=== PATIENT | female | born 1950 | race Caucasian/White ===

== ENCOUNTER 2016-12-05 20:02 | Emergency (ER) | payer BC ==
[2016-12-05 20:13] VITALS: BP 142/64
--- NOTE | 2016-12-05 21:54 | RAD ---
Indication: RIGHT foot injury. Attention third and fourth toes. Comparison: No relevant prior exams available on the [facility] for comparison. Technique: AP, lateral, and oblique views RIGHT foot. REPORT AND IMPRESSION: No cortical disruption or suspicious trabecular irregularity to suggest fracture. Negative for dislocation. Mild hallux valgus deformity at the first metatarsal phalangeal joint. Soft tissue swelling about the forefoot.
--- NOTE | 2016-12-05 22:10 | ED ---
Lower Extremity - HPI Summary HPI Summary: 66F presents with right 3th and four toe pain s/p stubbing her toes this morning. She has been able to walk on them. no abrasions. took ibuprofen for pain. no numbness or tingling. no previous injury. Mild edema noted to both 3rd and 4th toe on right foot with bruising. She is on blood thinners. - History of Current Complaint Chief Complaint: EDExtremityLower Stated Complaint: RT FOOT TOES INJURY Time Seen by Provider: 12/05/16 20:19 Pain Intensity: 7 - Allergies/Home Medications Allergies/Adverse Reactions: Allergies Allergy/AdvReac Type Severity Reaction Status Date / Time Penicillins [PCN] Allergy Severe Difficulty Verified 06/19/13 07:25 Breathing PMH/Surg Hx/FS Hx/Imm Hx Endocrine/Hematology History: Reports: Hx Anticoagulant Therapy Denies: Hx Diabetes Cardiovascular History: Reports: Hx Aneurysm, Hx Angina, Hx Coronary Artery Disease, Hx Hypercholesterolemia Denies: Hx Hypertension, Hx Valvular Heart Disease Respiratory History: Reports: Hx Asthma GI History: Reports: Hx Gastroesophageal Reflux Disease Musculoskeletal History: Reports: Hx Arthritis, Hx Back Problems Sensory History: Reports: Hx Cataracts - bilateral Opthamlomology History: Reports: Hx Cataracts - bilateral Neurological History: Reports: Hx Headaches Psychiatric History: Reports: Hx Depression Denies: Hx Suicide Attempt, Hx of Violent Episodes Against Others - Surgical History Surgery Procedure, Year, and Place: 4 stents, cataract, tonsillectomy, appy, hysterectomy Hx Anesthesia Reactions: No Infectious Disease History: No Infectious Disease History: Denies: Hx Clostridium Difficile, Traveled Outside the [place] in Last 30 Days - Family History Known Family History: Positive: Cardiac Disease - Social History Alcohol Use: None Substance Use Type: Reports: None Smoking Status (MU): Light Every Day Tobacco Smoker Type: Cigarettes Length of Time of Smoking/Using Tobacco: 20 yrs Review of Systems Negative: Fever Negative: Chest Pain Negative: Shortness Of Breath Positive: Myalgia - toe pain All Other Systems Reviewed And Are Negative: Yes Physical Exam Triage Information Reviewed: Yes Vital Signs On Initial Exam: Initial Vitals Temp Pulse Resp BP Pulse Ox 98 F 67 16 142/64 97 12/05/16 20:06 12/05/16 20:06 12/05/16 20:06 12/05/16 20:06 12/05/16 20:06 Vital Signs Reviewed: Yes Appearance: Positive: Well-Appearing Skin: Positive: Warm, Dry, Other - ecchymosis to 3rd distal phalanx right toe Head/Face: Positive: Normal Head/Face Inspection Eyes: Positive: Normal, Conjunctiva Clear Respiratory/Lung Sounds: Positive: Clear to Auscultation, Breath Sounds Present Cardiovascular: Positive: Normal, RRR Musculoskeletal: Positive: Strength/ROM Intact - toes, Other - capillary refill < 2 secs, good pulses Diagnostics - Vital Signs Vital Signs Temp Pulse Resp BP Pulse Ox 12/05/16 20:37 98 F 67 16 142/64 97 12/05/16 20:06 98 F 67 16 142/64 97 - Laboratory Lab Statement: Any lab studies that have been ordered have been reviewed, and results considered in the medical decision making process. Lower Extremity Course/Dx - Course Course Of Treatment: 66F presents with right 3th and four toe pain s/p stubbing her toes this morning. She has been able to walk on them. no abrasions. took ibuprofen for pain. no numbness or tingling. no previous injury. Mild edema noted to both 3rd and 4th toe on right foot with bruising. xray normal. will treat as sprain told to use hard sole shoes. warned not to take ibuprofen with blood thinners. patient understands and agrees with plan. - Diagnoses Differential Diagnosis/HQI/PQRI: Positive: Contusion, Fracture (Closed), Sprain Provider Diagnoses: Right foot injury Discharge - Discharge Plan Condition: Good Disposition: HOME Patient Education Materials: Foot Sprain (ED) Referrals: Verona Childress MD [Primary Care Provider] - Additional Instructions: Take Tylenol every 6 hours as needed for pain Apply ice, rest, elevate Wear hard sole shoes Follow up with primary care physician within 5 days if no improvement Return to ED if develop any new or worsening symptoms
== END 2016-12-05 22:32 | disposition home or self-care (01) ==
LOC: ED 20:02
DX: S99.921A Unspecified injury of right foot, initial encounter (principal); W22.8XXA Striking against or struck by other objects, initial encounter; Y93.9 Activity, unspecified; Y92.9 Unspecified place or not applicable; I25.119 Atherosclerotic heart disease of native coronary artery with unspecified angina pectoris; Z95.5 Presence of coronary angioplasty implant and graft; Z79.01 Long term (current) use of anticoagulants; E78.00 Pure hypercholesterolemia, unspecified; J45.909 Unspecified asthma, uncomplicated; K21.9 Gastro-esophageal reflux disease without esophagitis; Z90.710 Acquired absence of both cervix and uterus; Z98.42 Cataract extraction status, left eye; Z98.41 Cataract extraction status, right eye; Z88.0 Allergy status to penicillin; F17.210 Nicotine dependence, cigarettes, uncomplicated
CPT/HCPCS: 99281

== ENCOUNTER 2016-12-19 17:35 | Inpatient (IN) | payer BC ==
[2016-12-19] MEDS ORDERED: Aspirin Low Dose CHEW TAB* 81 MG PO ONE (18:10)
--- NOTE | 2016-12-19 20:05 | RAD ---
INDICATION: Shortness of breath. COMPARISON: Similar chest x-ray June 19, 2013 TECHNIQUE: Single AP portable view of the chest was obtained. FINDINGS: Image quality is compromised due to the relative inferiority of a portable chest x-ray. The heart and mediastinum exhibit normal size and contour. The lungs are grossly clear. There is no evidence of a large pleural effusion. Visualized bones are normal for the patient's age. IMPRESSION: No radiographic evidence for acute cardiopulmonary abnormality on this portable chest x-ray.
[2016-12-19 20:53] LABS: Hematocrit 42 % (35-47); Hemoglobin 13.9 g/dl (12.0-16.0); Mean Corpuscular HGB Conc 33 g/dl (31-36); Mean Corpuscular Hemoglobin 32 pg (27-31); Mean Corpuscular Volume 98 fL (80-97); Mean Platelet Volume 9 um3 (7.4-10.4); Red Blood Count 4.29 10^6/ul (4.0-5.4); Red Cell Distribution Width 13 % (10.5-15); White Blood Count 7.1 10^3/ul (3.5-10.8)
[2016-12-19 21:09] LABS: Albumin 4.1 g/dL (3.2-5.2); BUN/Creatinine Ratio 19.7 (8-20); Calcium 9.1 mg/dL (8.6-10.3); EGFR African American 97.9 (>60); EGFR Non-African American 76.1 (>60); Globulin 2.4 g/dL (2-4); Potassium 3.7 mmol/L (3.5-5.0); Total Bilirubin 0.4 mg/dL (0.2-1.0); Total Protein 6.5 g/dL (6.4-8.9)
[2016-12-19 21:20] LABS: Troponin I 0.2 ng/mL (<0.04)
[2016-12-19] MEDS ORDERED: Heparin VIAL(*) 5000 UNITS/ML VIAL (FIVE THOUSAND) IV SCH (23:45)
[2016-12-20] MEDS: Heparin DRIP 25,000 UNITS(*) 25,000 UNITS/500 ML BAG IV SCH (01:55)
[2016-12-20 02:11] LABS: Hematocrit 42 % (35-47); Hemoglobin 14.2 g/dl (12.0-16.0); Mean Corpuscular HGB Conc 34 g/dl (31-36); Mean Corpuscular Hemoglobin 33 pg (27-31); Mean Corpuscular Volume 98 fL (80-97); Mean Platelet Volume 9 um3 (7.4-10.4); Red Blood Count 4.33 10^6/ul (4.0-5.4); Red Cell Distribution Width 13 % (10.5-15); White Blood Count 6.7 10^3/ul (3.5-10.8)
[2016-12-20 02:39] LABS: Troponin I 0.33 ng/mL (<0.04)
[2016-12-20] MEDS ORDERED: Aspirin TAB* 325 MG PO SCH (09:00)
[2016-12-20] MEDS: Atorvastatin* 20 MG TAB PO SCH (09:16)
[2016-12-20] MEDS: Morphine INJ* 2 MG/ML 1 ML SYRINGE IV PRN ×3 (09:16→17:49)
[2016-12-20] MEDS: Aspirin EC Low Dose* 81 MG TAB.EC PO SCH (09:17)
[2016-12-20] MEDS: Clopidogrel TAB* 75 MG PO SCH (09:17)
[2016-12-20] MEDS: Metoprolol Tartrate TAB* 25 MG PO SCH ×2 (09:17→20:58)
[2016-12-20] MEDS: CMCS Pantoprazole TAB (NF) 40 MG TAB PO SCH (09:17)
[2016-12-20] MEDS ORDERED: Iohexol 350* (CONTRAST) 500 ML MDV IV ONE (09:22)
[2016-12-20] MEDS: Fluticasone NASAL SPRAY 50MCG* 16 gm SPRAY BTL BOTH NARES SCH (09:33)
[2016-12-20] MEDS: Ondansetron INJ* 2 MG/ML VIAL IV PRN ×3 (09:33→17:49)
--- NOTE | 2016-12-20 12:46 | HP ---
CC: Dr. Verona Childress * HISTORY AND PHYSICAL: DATE OF ADMISSION: 12/19/16 CHIEF COMPLAINT: Neck pain. HISTORY OF PRESENT ILLNESS: The patient is a 66-year-old woman who said this morning she started feeling pains in her jaw and neck bilaterally. It felt worse and worse at home. She took ibuprofen and she thought it got a little bit better, but then the pain got even worse. At times, it seemed to be 10/10 in severity. She finally came to the ER for evaluation. She received aspirin. She said the pain has subsided. She said she had no chest pain, but she did have pain between both shoulder blades. She had no shortness of breath. No nausea or vomiting. No palpitations. 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 She apparently had an MS in the past as per the patient and has another stent placed here at [facility], [facility]. PAST SURGICAL HISTORY: Hysterectomy and subsequent bilateral oophorectomy, tonsillectomy. CURRENT MEDICATIONS: 1. Zocor 40 mg daily. 2. Aspirin 325 mg daily. 3. Alendronate 70 mg weekly. 4. Omeprazole 20 mg daily. 5. Flonase 1 spray both nares daily. 6. Metoprolol tartrate 12.5 mg twice a day. 7. Skelaxin 800 mg 3 times a day. 8. Plavix 75 mg daily. ALLERGIES/ADVERSE REACTION: PENICILLIN. FAMILY HISTORY: Reviewed and noncontributory. SOCIAL HISTORY: She smokes 10 packs a day daily for 10 years. No alcohol or recreational drug use. She is a retired accountant cost. Her , Barron Logan , is her healthcare proxy. She has 2 children from a previous marriage. REVIEW OF SYSTEMS: A 14-point review of systems was completed with the patient. All pertinent positives and negatives are in the history of present illness, otherwise negative. PHYSICAL EXAMINATION GENERAL: A pleasant woman, lying in bed, in no acute distress. VITAL SIGNS: Temperature 97.5 degrees, heart rate 76 beats per minute, respiratory rate 16 breaths per minute, pulse ox 95%, blood pressure 118/68. HEENT: Normocephalic, atraumatic. Pupils equal, round, and reactive to light. Moist mucous membranes. NECK: Supple. No JVD, bruits, palpable thyroid, or lymphadenopathy. CHEST: Clear to auscultation and percussion bilaterally. CARDIOVASCULAR: S1 and S2 appreciated. Regular rate and rhythm. ABDOMEN: Positive bowel sounds in all 4 quadrants. Soft, nontender, and nondistended. EXTREMITIES: No cyanosis, clubbing or edema, +2 pulses bilaterally. NEURO: Alert and oriented x3. Moves all extremities. SKIN: No rashes or abnormalities. LABORATORY DATA/DIAGNOSTIC DATA: White count 7.1, hemoglobin 15.9, hematocrit 42, platelets are 186. Sodium is 139, potassium 3.7, chloride 108, CO2 of 26, BUN 15, creatinine 0.76, glucose 101, troponin 0.20. Chest x-ray was interpreted by Radiology as no radiographic evidence for acute cardiopulmonary abnormality on the portable chest x-ray. EKG shows normal sinus rhythm at 76 beats per minute, normal axis, nonspecific ST-T wave changes. ASSESSMENT AND PLAN: 1. [id number] myocardial infarction. I think this is likely diagnosis. Place the patient on heparin drip. Continue her beta-tevin, statin, and aspirin. Chest lipid profile in a.m. Cardiology consult in a.m. Admit to telemetry. 2. Hyperlipidemia. Continue Zocor as noted. 3. Gastroesophageal reflux disease, stable. Continue Prilosec. 4. FEN, n.p.o. Anticipating possible intervention. 5. DVT prophylaxis, heparin drip. 6. The patient is a full code. TIME SPENT: Over 75 minutes were spent on this H and P, more than 40 minutes of which was spent in direct [id number] contact with the patient in evaluation , physical exam, counseling, and coordination of care. [id number]/[facility] #: [id number] MTDD
--- NOTE | 2016-12-20 13:10 | RAD ---
Indication: Neck pain, headaches and nausea. Contrast: Administered 80.3 ml of OMNIPAQUE 350 mg/ml CTA of the neck and head was performed after IV contrast administration. Coronal and sagittal reconstructed images were obtained. The origins of the aortic arch are unremarkable. Innominate artery is unremarkable. The proximal right common carotid artery is limited in evaluation due to artifact from motion. The left common carotid artery demonstrates no intimal wall thickening or plaque. The internal carotid arteries bilaterally demonstrates no evidence of plaque. The anterior middle cerebral arteries are unremarkable. No branch occlusion is identified. No aneurysmal dilatation is noted. The vertebral arteries are patent bilaterally. The cerebral arteries and intracranial vessels demonstrates no branch occlusion. No definite aneurysmal dilatation is noted. There is a patent right posterior communicating artery. Posterior cerebral arteries are unremarkable. The lung apices are unremarkable. IMPRESSION: There is motion artifact limiting evaluation of the proximal right common carotid artery. No evidence of stenosis is noted. No definite plaque is noted. No branch occlusion or carotid artery dissection is noted. The intracranial vessels demonstrates no branch occlusion or aneurysmal dilatation.
[2016-12-20] MEDS: Acetaminophen TAB* 325 MG PO PRN ×2 (13:36→21:08)
--- NOTE | 2016-12-20 13:37 | PN ---
Subjective Date of Service: 12/20/16 Interval History: This is a 66 yo female with h/o CAD and HLD who presented with c/o neck pain that felt similar to prior CT. Initial trop elevated and patient was admitted for NSTEMI. Trop has peaked overnight without noted dynamic EKG changes. She reports that her neck pain has subsided but she now has a headache and mild nausea. She vomited once this am. Objective Active Medications: Acetaminophen (Tylenol Tab*) 650 mg PO Q6H PRN PRN Reason: pain/fever Aspirin (Aspirin Ec Low Dose*) 81 mg PO DAILY [facility] Last Admin: 12/20/16 09:17 Dose: 81 mg Atorvastatin Calcium (Lipitor*) 20 mg PO DAILY [facility] Last Admin: 12/20/16 09:16 Dose: 20 mg Clopidogrel Bisulfate (Plavix Tab*) 75 mg PO DAILY [facility] Last Admin: 12/20/16 09:17 Dose: 75 mg Fluticasone Propionate (Flonase Nasal [place] 50mcg*) 1 spray BOTH NARES DAILY [facility] Last Admin: 12/20/16 09:33 Dose: 1 spray Heparin Sodium (Porcine) (Heparin Vial(*)) 0 units IV .PER PROTOCOL [facility] PRN Reason: Protocol Heparin Sodium/Dextrose (Heparin Drip 25,000 Units(*)) 25,000 units in 500 mls @ 0 mls/hr IV .NO INITIAL BOLUS [facility]; As Directed PRN Reason: Protocol Last Admin: 12/20/16 01:55 Dose: 20 mls/hr Metoprolol Tartrate (Lopressor Tab*) 12.5 mg PO BID [facility] Last Admin: 12/20/16 09:17 Dose: 12.5 mg Morphine Sulfate (Morphine Inj (Syringe)*) 2 mg IV Q4H PRN PRN Reason: PAIN - MILD Last Admin: 12/20/16 09:16 Dose: 2 mg Ondansetron HCl (Zofran Inj*) 4 mg IV Q4H PRN PRN Reason: NAUSEA Last Admin: 12/20/16 09:33 Dose: 4 mg Pantoprazole Sodium (Protonix Tab (Nf)) 40 mg PO DAILY [facility] Last Admin: 12/20/16 09:17 Dose: 40 mg Vital Signs: Temp Pulse Resp BP Pulse Ox 97.7 F 67 16 109/60 94 12/20/16 11:58 12/20/16 11:58 12/20/16 11:58 12/20/16 11:58 12/20/16 11:58 Oxygen Devices in Use Now: None Appearance: Well appearing middle aged female in NAD Respiratory: Symmetrical Chest Expansion and Respiratory Effort, Clear to Auscultation Cardiovascular: NL Sounds; No Murmurs; No JVD, RRR Abdominal: NL Sounds; No Tenderness; No Distention Extremities: No Edema Neurological: Alert and Oriented x 3 Result Diagrams: 12/20/16 01:55 12/20/16 02:30 Diagnostic Imaging: CXR - NAD CTA head/neck - WNL EKG - sinus without acute ischemic changes Assess/Plan/Problems-Billing Assessment: This is a 66 yo female with h/o CAD and prior coronary dissection as well as HLD who presented with CP who has been admitted for NSTEMI - Patient Problems (1) NSTEMI (non-ST elevated myocardial infarction) Comment: Trop has peaked, c/o neck pain have resolved and no EKG changes noted Patient has been evaluated by salesperson china and glassware, Dr Lowe, who plans to perform diagnostic cath Thursday but sooner if there is evidence of new ischemia Cont heparin drip, ASA, BB, statin and home Plavix (2) HLD (hyperlipidemia) Comment: Cont statin (3) Full code status (4) DVT prophylaxis Comment: Heparin drip Status and Disposition: Inpatient. Pending cath for Thursday, [place] planning with depend on results
[2016-12-20] MEDS ORDERED: Calcium Carbonate CHEW TAB* 500 MG (TUMS) PO PRN (14:52)
[2016-12-20] MEDS: Al Hydrox/Mg Hydrox/Simet LIQ* 30 ML UDC PO PRN (18:27)
[2016-12-21 03:36] LABS: EGFR African American 84.9 (>60)
[2016-12-21 03:39] LABS: Hematocrit 41 % (35-47); Hemoglobin 13.9 g/dl (12.0-16.0); Mean Corpuscular HGB Conc 34 g/dl (31-36); Mean Corpuscular Hemoglobin 32 pg (27-31); Mean Corpuscular Volume 95 fL (80-97); Mean Platelet Volume 9 um3 (7.4-10.4); Red Blood Count 4.34 10^6/ul (4.0-5.4); Red Cell Distribution Width 13 % (10.5-15); White Blood Count 6.6 10^3/ul (3.5-10.8)
[2016-12-21] MEDS: Acetaminophen TAB* 325 MG PO PRN ×2 (06:08→12:50)
[2016-12-21] MEDS: Heparin DRIP 25,000 UNITS(*) 25,000 UNITS/500 ML BAG IV SCH (06:30)
[2016-12-21] MEDS: Atorvastatin* 20 MG TAB PO SCH (08:18)
[2016-12-21] MEDS: Clopidogrel TAB* 75 MG PO SCH (08:18)
[2016-12-21] MEDS: CMCS Pantoprazole TAB (NF) 40 MG TAB PO SCH (08:19)
[2016-12-21] MEDS: Aspirin EC Low Dose* 81 MG TAB.EC PO SCH (08:19)
[2016-12-21] MEDS: Fluticasone NASAL SPRAY 50MCG* 16 gm SPRAY BTL BOTH NARES SCH (08:20)
[2016-12-21] MEDS ORDERED: diPHENhydraMINE PO* 25 MG PO ONE (10:02)
[2016-12-21] MEDS ORDERED: Diazepam TAB(*) 5 MG PO ONE (10:02)
--- NOTE | 2016-12-21 11:39 | CONS ---
CC: Dr. Verona Childress * CARDIOLOGY CONSULTATION: DATE OF CONSULT: 12/20/16 REASON FOR CONSULT: Coronary artery disease, acute coronary syndrome. HISTORY OF PRESENT ILLNESS: The patient is a 66-year-old female with a history of coronary artery disease, who was brought to the emergency room on 12/19/16 in the evening with chest pain. The patient states that she had been doing well up until about a week ago when she was having mild intermittent chest pain. She did not think much about it and she said this occurred with exertion and stopped quickly with rest. However, on Thursday morning, she woke up and had severe jaw and chest pain. She said it started in her chest and radiated to her jaw and to her back. She was diaphoretic when she had these symptoms. They lasted for approximately an hour. She did take an aspirin and the symptoms resolved. The patient states she felt just tired and weak the rest of the day, but then in the evening around 5 o'clock, the symptoms returned with the same intensity, it again radiated from her chest to her jaw. She also had some diaphoresis. At that time, she decided to drive herself to the emergency room. On arrival to the emergency room, the patient was given sublingual nitroglycerin, morphine, and her initial troponin level was 0.2. The patient was started on heparin and admitted to the hospital. Her initial EKG demonstrated normal sinus rhythm with T-wave abnormalities, no obvious ST segment depression or elevation. PAST MEDICAL HISTORY: Significant for coronary artery disease. The patient had a cardiac catheterization in July of 2010. 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 She had 4 bare-metal stents placed at that time. The patient had a repeat cardiac catheterization in December of 2012. At that time, she had restenosis of her distal right coronary artery. She had a 2.25 mm x 12 mm Promus stent placed. She also had angioplasty to other restenotic areas. Also has a history of hypertension. PAST SURGICAL HISTORY: Cardiac catheterization as described above, hysterectomy , tonsillectomy. OUTPATIENT MEDICATIONS: 1. Zocor 40 mg a day. 2. Aspirin 325 a day. 3. Alendronate 70 mg q. week. 4. Omeprazole 20 mg a day. 5. Flonase 2 sprays. 6. Metoprolol tartrate 12.5 mg b.i.d. 7. Skelaxin 800 mg 3 times a day. 8. Plavix 75 mg a day. ALLERGIES: PENICILLIN. FAMILY HISTORY: No family history of early coronary artery disease. SOCIAL HISTORY: She was a previous smoker. She denies alcohol. She is a retired community outreach director. She lives with her and has 2 children. PHYSICAL EXAM: Height is 5 feet 4 inches, weight is 141 pounds, temperature 98.4, heart rate is 62, blood pressure 100/40, respiratory rate is 18, oxygen saturation 93%. Sclerae anicteric. Oropharynx pink without erythema. Carotids are 2+ without bruits. JVD is normal. Thyroid is normal. Cardiac exam: S1, S2, without any murmurs, rubs or gallops. Lungs: Clear to auscultation bilaterally with no dullness to percussion. Abdomen: Soft, nontender, nondistended with normoactive bowel sounds. Extremities: Show no edema. She has 2+ pulses throughout. Patient is awake, alert, and oriented. She moves all 4 extremities equally. DIAGNOSTIC STUDIES/LAB DATA: Chemistries are within normal limits. BUN 15, creatinine 0.76. AST and ALT are normal. Peak troponin level 0.63. Total cholesterol 278, LDL cholesterol 183, HDL cholesterol 37. CBC within normal limits. Other diagnostic tests: The patient had a CTA of her chest and neck to rule out carotid dissection. There is no evidence of abnormalities. IMPRESSION: This is a 66-year-old female who was admitted to the hospital with acute coronary syndrome. The patient has already been treated with Plavix, aspirin, and beta-blockers, and statin therapy. PLAN/RECOMMENDATIONS: The patient will undergo repeat cardiac catheterization given her current presentation. The risks and benefits were described in great detail and the patient is willing to proceed. This case was discussed with KACIE Mack, for the hospitalist service. [id number]/[facility] #: [id number] [facility] HOSPITALAngela
--- NOTE | 2016-12-21 13:33 | PN ---
Subjective Date of Service: 12/21/16 Interval History: Patient reports no recurrence of CP. No SOB, no abd pain, n/v. She still has an occasional VILLAFUERTE which is managed with APAP. Objective Active Medications: Acetaminophen (Tylenol Tab*) 650 mg PO Q6H PRN PRN Reason: pain/fever Last Admin: 12/21/16 12:50 Dose: 650 mg Al Hydrox/Mg Hydrox/Simethicone (Maalox Plus*) 30 ml PO Q4H PRN PRN Reason: reflux Last Admin: 12/20/16 18:27 Dose: 30 ml Aspirin (Aspirin Ec Low Dose*) 81 mg PO DAILY [facility] Last Admin: 12/21/16 08:19 Dose: 81 mg Atorvastatin Calcium (Lipitor*) 80 mg PO DAILY [facility] Calcium Carbonate (Tums*) 500 mg PO Q4H PRN PRN Reason: GI upset Last Admin: 12/20/16 15:21 Dose: 500 mg Clopidogrel Bisulfate (Plavix Tab*) 75 mg PO DAILY [facility] Last Admin: 12/21/16 08:18 Dose: 75 mg Fluticasone Propionate (Flonase Nasal [place] 50mcg*) 1 spray BOTH NARES DAILY [facility] Last Admin: 12/21/16 08:20 Dose: 1 spray Heparin Sodium (Porcine) (Heparin Vial(*)) 0 units IV .PER PROTOCOL [facility] PRN Reason: Protocol Heparin Sodium/Dextrose (Heparin Drip 25,000 Units(*)) 25,000 units in 500 mls @ 0 mls/hr IV .NO INITIAL BOLUS [facility]; As Directed PRN Reason: Protocol Last Admin: 12/21/16 06:30 Dose: 17 mls/hr Sodium Chloride (Ns 0.9% 1000 Ml*) 1,000 mls @ 75 mls/hr IV .per rate [facility] Morphine Sulfate (Morphine Inj (Syringe)*) 2 mg IV Q4H PRN PRN Reason: PAIN - MILD Last Admin: 12/20/16 17:49 Dose: 2 mg Ondansetron HCl (Zofran Inj*) 4 mg IV Q4H PRN PRN Reason: NAUSEA Last Admin: 12/20/16 17:49 Dose: 4 mg Pantoprazole Sodium (Protonix Tab (Nf)) 40 mg PO DAILY [facility] Last Admin: 12/21/16 08:19 Dose: 40 mg Vital Signs: Temp Pulse Resp BP Pulse Ox 98.0 F 69 18 101/56 95 12/21/16 10:52 12/21/16 10:52 12/21/16 10:52 12/21/16 10:52 12/21/16 10:52 Oxygen Devices in Use Now: None Appearance: Well appearing middle aged female in NAD Respiratory: Symmetrical Chest Expansion and Respiratory Effort, Clear to Auscultation Cardiovascular: NL Sounds; No Murmurs; No JVD, RRR Abdominal: NL Sounds; No Tenderness; No Distention Extremities: No Edema Neurological: Alert and Oriented x 3 Result Diagrams: 12/21/16 03:12 12/21/16 03:12 Diagnostic Imaging: CXR - NAD CTA head/neck - WNL EKG - sinus without acute ischemic changes Assess/Plan/Problems-Billing Assessment: This is a 66 yo female with h/o CAD and prior coronary dissection as well as HLD who presented with CP who has been admitted for NSTEMI - Patient Problems (1) NSTEMI (non-ST elevated myocardial infarction) Comment: Trop has peaked, c/o neck pain have resolved and no EKG changes noted Patient has been evaluated by black powder glazing operator, Dr Lowe, who plans to perform diagnostic cath tomorrow but sooner if there is evidence of new ischemia Cont heparin drip, ASA, statin and home Plavix BB dc'd due to hypotension and borderline bradycardia (2) HLD (hyperlipidemia) Comment: Cont statin (3) Full code status (4) DVT prophylaxis Comment: Heparin drip Status and Disposition: Inpatient. Pending cath tomorrow, dc planning with depend on results
[2016-12-21] MEDS: Al Hydrox/Mg Hydrox/Simet LIQ* 30 ML UDC PO PRN (16:55)
[2016-12-21] MEDS ORDERED: NS 0.9% 1000 ML* 1,000 ML IV SCH (23:15)
[2016-12-22 05:36] LABS: Hematocrit 42 % (35-47); Mean Corpuscular HGB Conc 33 g/dl (31-36); Mean Corpuscular Hemoglobin 32 pg (27-31); Mean Corpuscular Volume 95 fL (80-97); Mean Platelet Volume 9 um3 (7.4-10.4); Red Blood Count 4.43 10^6/ul (4.0-5.4); Red Cell Distribution Width 13 % (10.5-15); White Blood Count 4.3 10^3/ul (3.5-10.8)
[2016-12-22] MEDS ORDERED: Diazepam TAB(*) 5 MG ONE (08:23)
[2016-12-22] MEDS ORDERED: Aspirin Low Dose CHEW TAB* 81 MG ONE (08:24)
[2016-12-22] MEDS ORDERED: diPHENhydraMINE PO* 25 MG ONE (08:24)
[2016-12-22] MEDS ORDERED: Clopidogrel TAB* 75 MG ONE (08:24)
[2016-12-22] MEDS: Clopidogrel TAB* 75 MG PO SCH (08:27)
[2016-12-22] MEDS: Aspirin EC Low Dose* 81 MG TAB.EC PO SCH (08:27)
[2016-12-22] MEDS: Heparin DRIP 25,000 UNITS(*) 25,000 UNITS/500 ML BAG IV SCH (08:29)
[2016-12-22] MEDS ORDERED: fentaNYL* 50 MCG/ML 2 ML VIAL (100 MCG VIAL) ONE (08:40)
[2016-12-22] MEDS ORDERED: Lidocaine 1% INJ* 10 MG/ML 30 ML SDV ONE (08:40)
[2016-12-22] MEDS ORDERED: Heparin 2 UNITS/ML IVPREMIX* 3,000 ML IV ONE (08:40)
[2016-12-22] MEDS ORDERED: Midazolam* 1 MG/ML 5 ML VIAL (5 MG) ONE (08:40)
[2016-12-22] MEDS ORDERED: Iohexol 350 (CONTRAST) 200 ML MDV IV ONE ×2 (08:41→09:43)
[2016-12-22] MEDS ORDERED: Ticagrelor* 90 MG TAB PO ONE (09:29)
[2016-12-22] MEDS ORDERED: Bivalirudin(*) 250 MG VIAL ONE (09:37)
[2016-12-22] MEDS ORDERED: nitroGLYCERIN DRIP* 250 ML ONE (09:37)
[2016-12-22] MEDS ORDERED: Nitroglycerin TAB 0.4 MG* 0.4 MG TAB SL PRN (10:33)
[2016-12-22] MEDS ORDERED: Docusate CAP* 100 MG PO PRN (10:33)
[2016-12-22] MEDS ORDERED: Zolpidem TAB* 5 MG PO PRN (10:33)
[2016-12-22] MEDS ORDERED: NS 0.9% 1000 ML* 1,000 ML IV SCH (10:45)
[2016-12-22] MEDS: Atorvastatin* 80 MG TAB PO SCH (11:43)
[2016-12-22] MEDS: CMCS Pantoprazole TAB (NF) 40 MG TAB PO SCH (11:44)
[2016-12-22] MEDS: Fluticasone NASAL SPRAY 50MCG* 16 gm SPRAY BTL BOTH NARES SCH (11:44)
--- NOTE | 2016-12-22 14:04 | PN ---
Subjective Date of Service: 12/22/16 Interval History: Patient underwent cardiac catheterization this am which resulted in stenting of the RCA which demonstrated significant stenosis in the proximal and mid portions. The distal portion was also severely stenosed but interventionalist was unable to pass a wire through the region, collateral circulation was present. Patient reports mild nausea since the procedure. No chest or neck pain. No SOB. Objective Active Medications: Acetaminophen (Tylenol Tab*) 650 mg PO Q4H PRN PRN Reason: pain/fever Al Hydrox/Mg Hydrox/Simethicone (Maalox Plus*) 30 ml PO Q4H PRN PRN Reason: reflux Last Admin: 12/21/16 16:55 Dose: 30 ml Aspirin (Aspirin Ec Low Dose*) 81 mg PO DAILY [facility] Last Admin: 12/22/16 08:27 Dose: 81 mg Atorvastatin Calcium (Lipitor*) 80 mg PO DAILY [facility] Last Admin: 12/22/16 11:43 Dose: 80 mg Calcium Carbonate (Tums*) 500 mg PO Q4H PRN PRN Reason: GI upset Last Admin: 12/20/16 15:21 Dose: 500 mg Docusate Sodium (Colace Cap*) 100 mg PO DAILY PRN PRN Reason: CONSTIPATION Fluticasone Propionate (Flonase Nasal [place] 50mcg*) 1 spray BOTH NARES DAILY [facility] Last Admin: 12/22/16 11:44 Dose: 1 spray Heparin Sodium (Porcine) (Heparin Vial(*)) 0 units IV .PER PROTOCOL [facility] PRN Reason: Protocol Sodium Chloride (Ns 0.9% 1000 Ml*) 1,000 mls @ 75 mls/hr IV .per rate [facility] Last Admin: 12/21/16 23:14 Dose: 75 mls/hr Sodium Chloride (Ns 0.9% 1000 Ml*) 1,000 mls @ 100 mls/hr IV .per rate [facility] Last Admin: 12/22/16 11:44 Dose: 100 mls/hr Morphine Sulfate (Morphine Inj (Syringe)*) 2 mg IV Q4H PRN PRN Reason: PAIN - MILD Last Admin: 12/20/16 17:49 Dose: 2 mg Nitroglycerin (Nitroglycerin Tab 0.4 Mg*) 0.4 mg SL Q5M PRN PRN Reason: ANGINA Ondansetron HCl (Zofran Inj*) 4 mg IV Q4H PRN PRN Reason: NAUSEA Last Admin: 12/20/16 17:49 Dose: 4 mg Pantoprazole Sodium (Protonix Tab (Nf)) 40 mg PO DAILY [facility] Last Admin: 12/22/16 11:44 Dose: 40 mg Ticagrelor (Brilinta*) 90 mg PO BID [facility] Zolpidem Tartrate (Ambien Tab*) 5 mg PO BEDTIME PRN PRN Reason: INSOMNIA Vital Signs: Temp Pulse Resp BP Pulse Ox 97.6 F 73 20 136/69 99 12/22/16 11:35 12/22/16 13:00 12/22/16 13:00 12/22/16 13:00 12/22/16 13:00 Appearance: Well appearing female in NAD Respiratory: Symmetrical Chest Expansion and Respiratory Effort, Clear to Auscultation Cardiovascular: NL Sounds; No Murmurs; No JVD, RRR Abdominal: NL Sounds; No Tenderness; No Distention Extremities: No Edema Skin: No Rash or Ulcers Neurological: Alert and Oriented x 3 Result Diagrams: 12/22/16 05:11 12/21/16 03:12 Diagnostic Imaging: CXR - NAD CTA head/neck - WNL EKG - sinus without acute ischemic changes Assess/Plan/Problems-Billing Assessment: This is a 66 yo female with h/o CAD and prior coronary dissection as well as HLD who presented with CP who has been admitted for NSTEMI - Patient Problems (1) NSTEMI (non-ST elevated myocardial infarction) Comment: Trop has peaked, c/o neck pain have resolved and no EKG changes noted Now s/p cath with stent placed to RCA with persistent distal stenosis Patient is now on Brilinta to replace Plavix with ASA and statin Her use of BB was limited by BP earlier in her hospital stay, but will try to start 12.5 mg of metoprolol succinate and she may require additional antianginal agents due to presence of persistent stenosis (2) HLD (hyperlipidemia) Comment: Cont statin LDL 183 Prior statin use has been limited by hepatic dysfunction, this will need to be monitored (3) Full code status (4) DVT prophylaxis Comment: Heparin drip Status and Disposition: Inpatient. Anticipate dc in 1-2 days
[2016-12-22] MEDS ORDERED: Metoprolol Succinate XL TAB* 25 MG PO SCH (15:00)
[2016-12-22] MEDS: Metoprolol Succinate XL TAB* 25 MG PO SCH (15:56)
[2016-12-22] MEDS: Acetaminophen TAB* 325 MG PO PRN (20:26)
[2016-12-22] MEDS: Ticagrelor* 90 MG TAB PO SCH (21:37)
--- NOTE | 2016-12-23 03:28 | CATH ---
CC: Dr. Verona Childress; Dr. Randy Cavazos * CARDIAC CATHETERIZATION REPORT: DATE OF PROCEDURE: 12/22/16 - ROOM #ICU-02 PROCEDURE: Cardiac catheterization including left ventriculogram, left heart catheterization, and coronary angiography. INDICATION: Acute coronary syndrome, history of coronary artery disease, and cardiac stent placement. The patient is a 66-year-old female with a history of stent placement. Recently back in 2010, she had 4 stents placed to her right coronary artery after a cardiac catheterization. The patient had a repeat cardiac catheterization in 2012. At that time, she had an additional stent placed for restenosis of her artery. The patient has been followed by Dr. Childress. The patient was admitted to the hospital with chest pain and positive troponins. DESCRIPTION OF PROCEDURE: The patient was brought to the cardiac catheterization lab in a fasting state. Informed consent had been obtained prior to the procedure. All labs were reviewed. The patient was placed supine on the catheterization table. Both femoral areas were cleaned and draped in the usual fashion. 1% lidocaine was used for local anesthesia. The right femoral artery was entered by a modified Seldinger technique and a 6-Chilean sheath introducer was placed. The patient underwent left ventriculogram and coronary angiography using a 6-Chilean pigtail catheter, a 6-Chilean JL4 catheter , and a 6-Chilean JR4 catheter. At the end of the procedure, the patient went on to angioplasty and stenting of her right coronary artery by Dr. Cavazos, please see his report. A total of 2.5 minutes of fluoro time was used. A total of 65 cc of Omnipaque dye was used. FINDINGS: HEMODYNAMICS: Central aortic blood pressure 128/66 with a mean of 91, left ventricular pressure 129/2 with an end-diastolic pressure of 8. LEFT VENTRICULOGRAM: Left ventricle was normal in size. Overall systolic function of the left ventricle was normal with an estimated ejection fraction 60 %. There was a mild hypokinesis of the inferior base. There is no mitral regurgitation. Aortic valve and ascending aorta appeared normal. CORONARY ARTERIES: Left main artery: The left main was normal in size bifurcating into the LAD and circumflex. There was no evidence of stenosis. Left anterior descending artery: The LAD was normal in size. It gave off 1 diagonal vessel. There was no evidence of stenosis. Left circumflex artery: The circumflex artery was normal in size. It gave off 1 obtuse marginal branch. There was no evidence of stenosis. Right coronary artery: The RCA was a large dominant vessel. It gave off the PDA. There were continuous stents placed from the proximal portion of the right coronary artery all the way down past the PDA and stents to the PDA itself. The proximal portion of these stents showed mild in-stent restenosis. The mid vessel showed severe in-stent restenosis with a 95% stenosis. Subsequent to that, there was a 70% stenosis within the stent itself. The PDA itself had diffuse in-stent restenosis of 50%. The posterolateral branch was diffusely diseased. There was evidence of left to right collaterals of the distal posterolateral branch. IMPRESSION: 1. Normal left ventricular size and systolic function. 2. Critical in-stent restenosis of the right coronary artery. 3. Severe diminished flow to the posterolateral branch of the right coronary artery. RECOMMENDATION: The patient will undergo angioplasty and stenting of the restenosis in the mid right coronary artery. The restenosis of the posterolateral branch is too diffuse to attempt any intervention. [id number]/[facility] #: [id number] KONG
[2016-12-23] MEDS: Acetaminophen TAB* 325 MG PO PRN (05:06)
[2016-12-23 05:42] LABS: Hematocrit 43 % (35-47); Hemoglobin 14.6 g/dl (12.0-16.0); Mean Corpuscular HGB Conc 34 g/dl (31-36); Mean Corpuscular Hemoglobin 32 pg (27-31); Mean Corpuscular Volume 95 fL (80-97); Mean Platelet Volume 9 um3 (7.4-10.4); Red Blood Count 4.52 10^6/ul (4.0-5.4); Red Cell Distribution Width 13 % (10.5-15); White Blood Count 6.6 10^3/ul (3.5-10.8)
[2016-12-23 07:52] LABS: BUN/Creatinine Ratio 12.2 (8-20); Calcium 8.7 mg/dL (8.6-10.3); EGFR Non-African American 78.5 (>60); Potassium 3.7 mmol/L (3.5-5.0)
--- NOTE | 2016-12-23 08:02 | CATH ---
CC: Verona Childress MD; Neil Lowe MD; and Dr. Nicholas Kapoor, Web Merchandiser at [facility]. * CARDIAC CATHETERIZATION INTERVENTIONAL REPORT: DATE OF PROCEDURE: 12/22/16 INDICATIONS FOR PROCEDURE: Asked by Dr. Neil Lowe to perform intervention to the mid and [id number] critical right coronary artery stenosis in light of non- ST-elevation myocardial infarction. PROCEDURE: Balloon angioplasty and placement of a 3.0 x 32 mm long synergy drug - eluting stent in the mid to distal right coronary artery post dilated to 3.2 mm with high pressure balloon inflation. DESCRIPTION OF PROCEDURE: The patient had already been prepped and draped, and had an existing 6 Malaysian arterial sheath from the diagnostic cardiac catheterization performed by Dr. Neil Lowe and reported separately. Guiding views were obtained utilizing a 6 Malaysian ART 3.5 curve right coronary catheter. The patient received 180 mg of Brilinta and an Angiomax bolus, and an Angiomax drip was started. An .014 BMW Guidewire was advanced down the right coronary artery and balloon angioplasty was performed utilizing an NC emerge balloon, 2.5 x 15 mm. Attempts were made to try to traverse to the distal -most area, which appeared to be a subtotally occluded posterior left ventricular branch that was getting collateral blood flow from the left coronary artery. Both the mid and mid to distal lesions were dilated. Following this, the long 3.0 x 32 mm long Synergy drug-eluting stent was deployed with post deployment inflations to high pressure, utilizing a 3.0 x 15 mm NC emerge balloon. Following this, the artery was assessed in multiple views as well as with the wire removed. Medications given included intracoronary nitroglycerin. At the end of the case, an injection was made into the right femoral sheath to assess eligibility to utilize closure device. It was found to be acceptable for this; and, as such, a 6/7 Malaysian Mynx closure device was deployed with good hemostasis. RESULTS: Intervention into 95% mid right coronary lesion as well as 90% mid to distal right coronary artery lesion with moderate disease in between: Successful reduction of critical lesions with balloon angioplasty and stent placement in high pressure post deployment balloon dilatations with a 5% to 10% residual narrowing noted ROSEMARY-3 flow and no dissection seen. Of note, there was improvement in blood flow to the subtotally occluded posterior left ventricular branch, which showed competitive flow from the collaterals from the left coronary artery. Recommendations for intermission coordinator dual-antiplatelet therapy, anti-anginal medication institution, and high-dose statin therapy strongly recommended. If the patient has intolerance of statins as potentially reported in the past, consideration toward new PCSK9 inhibitor agents for cholesterol management might be an option. Of note, there was diffuse in-stent restenosis, moderate in nature, throughout the whole right coronary artery in general. [id number]/[facility] #: [id number] KONG
[2016-12-23 08:31] VITALS: BP 117/58
[2016-12-23] MEDS: Ticagrelor* 90 MG TAB PO SCH (08:45)
[2016-12-23] MEDS: Metoprolol Succinate XL TAB* 25 MG PO SCH (08:45)
[2016-12-23] MEDS: Atorvastatin* 80 MG TAB PO SCH (08:45)
[2016-12-23] MEDS: Aspirin EC Low Dose* 81 MG TAB.EC PO SCH (08:46)
[2016-12-23] MEDS: Fluticasone NASAL SPRAY 50MCG* 16 gm SPRAY BTL BOTH NARES SCH (08:46)
[2016-12-23] MEDS: CMCS Pantoprazole TAB (NF) 40 MG TAB PO SCH (09:05)
--- NOTE | 2016-12-23 21:37 | DS ---
CC: Dr. Verona Childress; Dr. Lowe * DISCHARGE SUMMARY: DATE OF ADMISSION: 12/19/16 DISCHARGE DATE: 12/23/16 PRIMARY CARE PROVIDER: Dr. Verona Childress. CONSULTING RUBBER VULCANIZING MACHINE OPERATOR: Dr. Lowe. CONSTRUCTION MGR: Dr. Cavazos. DISCHARGING PROVIDER: KACIE Sinha SUPERVISING PHYSICIAN: Dr. Natividad Cuevas. * (DICTATED BY KACIE SINHA) PRIMARY DISCHARGE DIAGNOSIS: Non-ST elevation myocardial infarction, status post drug-eluting stent to the right coronary artery with some persistent distal stenosis. SECONDARY DISCHARGE DIAGNOSES: 1. Hyperlipidemia - history of intolerance to statins, reported as change in liver enzymes. 2. History of right coronary dissection and known prior coronary artery disease. DISCHARGE MEDICATIONS: 1. Alendronate 70 mg p.o. weekly. 2. Aspirin 81 mg p.o. daily. 3. Lipitor 80 mg p.o. daily. 4. Fluticasone nasal spray, 1 spray in both nostrils twice daily. 5. Isosorbide mononitrate 30 mg p.o. daily. 6. Metoprolol succinate 12.5 mg p.o. daily. 7. Omeprazole 20 mg p.o. daily. 8. Simvastatin 40 mg p.o. daily. 9. Brilinta 90 mg p.o. twice daily. Medication changes: 1. Start Lipitor. 2. Start Imdur. 3. Start metoprolol. 4. Stop Plavix. 5. Start Brilinta. HOSPITAL IMAGIN. Chest x-ray shows no acute process. 2. EKG shows a sinus rhythm with nonspecific ST-segment changes, which remains unchanged on serial. 3. CTA of the head and neck shows no evidence of dissection. No evidence of significant stenosis or branch occlusion is noted. 4. Cardiac catheterization: The patient had 95% stenosis of the mid RCA as well as a 90% [id number] RCA lesion with an additional distal lesion that was unable to be wired open, but collaterals noted surrounding with improved blood flow to the area as stenting was performed to the proximal end of the vessel. Left main artery showed no evidence of stenosis. LAD showed no evidence of stenosis. Circumflex showed no evidence of stenosis. Ventriculogram showed an EF of 60%. HOSPITAL COURSE: This is a 66-year-old female with a known prior history of coronary artery disease and hyperlipidemia, who presented to the emergency department with complaints of neck pain similar to her prior [place]. Her initial troponin was elevated to 0.20 and her initial EKG showed no ischemic changes. Serial troponin measurements showed a steady rise to a peak of about 0.36. Neck pain resolved and the patient was subsequently treated with heparin drip and evaluated by Cardiology. She went for a cardiac catheterization, which demonstrated critical stenosis in the mid and [id number] RCA, which was stented. There was an additional area of stenosis in the distal portion of RCA, which was unable to be stented with collateral circulation noted. The patient remained asymptomatic following intervention. She was started on long- acting vasodilatation medication due to the persistent distal RCA stenosis for additional symptom relief. She does have a history of reported statin intolerance but seemed to do well with Lipitor during her hospital stay without complaints of myalgias or changes in liver function. Recommend following liver enzymes as an outpatient and consider dose reduction or discontinuation of statin if intolerance again is proven. DISPOSITION AND FOLLOWUP PLAN: The patient is being discharged to home where she lives with her . Medication changes as noted above. She will follow up with Dr. Lowe for groin site check in 1 to 2 weeks. KACIE SINHA [id number]/[facility] #: [id number] MTDAngela
== END 2016-12-23 11:05 | disposition home or self-care (01) | DRG 174 ==
LOC: ED 17:35 → MEDTELE 23:21 → ICU 12-22 09:59
PROVIDERS: ADMIT Internal Medicine; ATTEND Hospitalist
PROC: 027034Z Dilation of Coronary Artery, One Artery with Drug-eluting Intraluminal Device, Percutaneous Approach (ICD-10-PCS; principal; 2016-12-19)
PROC: 4A023N7 Measurement of Cardiac Sampling and Pressure, Left Heart, Percutaneous Approach (ICD-10-PCS; 2016-12-19)
PROC: B2111ZZ Fluoroscopy of Multiple Coronary Arteries using Low Osmolar Contrast (ICD-10-PCS; 2016-12-19)
PROC: B2151ZZ Fluoroscopy of Left Heart using Low Osmolar Contrast (ICD-10-PCS; 2016-12-19)
DX: I21.4 Non-ST elevation (NSTEMI) myocardial infarction (principal); T82.855A Stenosis of coronary artery stent, initial encounter; E78.5 Hyperlipidemia, unspecified; I25.10 Atherosclerotic heart disease of native coronary artery without angina pectoris; Z79.82 Long term (current) use of aspirin; Z90.710 Acquired absence of both cervix and uterus; Z88.0 Allergy status to penicillin; Z72.89 Other problems related to lifestyle; F17.200 Nicotine dependence, unspecified, uncomplicated; K21.9 Gastro-esophageal reflux disease without esophagitis; M54.2 Cervicalgia; I10 Essential (primary) hypertension; Z95.5 Presence of coronary angioplasty implant and graft; I24.9 Acute ischemic heart disease, unspecified; Y71.1 Therapeutic (nonsurgical) and rehabilitative cardiovascular devices associated with adverse incidents; Y92.9 Unspecified place or not applicable
CPT/HCPCS: 36415; 70496; 70498; 71010; 80048; 80053; 80061; 82565; 83605; 84484; 84520; 85025; 85730; 93005; 93458; 99156; 99157; A9270-GY; C1725; C1760; C1769; C1876; C1887; C9600-RC; J0583; J1644; J2001; J2250; J2270; J2405; J3010; Q9967

== ENCOUNTER 2018-03-16 08:10 | Emergency (ER) | payer BC ==
[2018-03-16 08:22] VITALS: BP 125/69
--- NOTE | 2018-03-16 08:41 | UC ---
Respiratory Complaint HPI - HPI Summary HPI Summary: Ms. García Presents complaining of a paroxysmal coughs that her productive and fevers. She was in bed for 3 days. She states she has the same symptoms as her who was seen here and treated for "walking pneumonia". She is a smoker stating that she smoked her last cigarette Thursday - History of Current Complaint Chief Complaint: UCRespiratory Stated Complaint: URI Time Seen by Provider: 03/16/18 08:27 Pain Intensity: 7 - Allergies/Home Medications Allergies/Adverse Reactions: Allergies Allergy/AdvReac Type Severity Reaction Status Date / Time Penicillins Allergy Difficulty Verified 03/16/18 08:22 Breathing Home Medications: Home Medications Rosuvastatin Calcium [Crestor] 20 mg PO DAILY 03/16/18 [History Confirmed ] PMH/Surg Hx/FS Hx/Imm Hx Respiratory History: Asthma - She hasn't had a problem in a few years. Other History Of: Anticoagulant Therapy - Surgical History Surgical History: Yes Surgery Procedure, Year, and Place: 4 stents, cataract, tonsillectomy, appy, hysterectomy - Family History Known Family History: Positive: Cardiac Disease - Social History Alcohol Use: None Substance Use Type: None Smoking Status (MU): Light Every Day Tobacco Smoker Type: Cigarettes Length of Time of Smoking/Using Tobacco: 20 yrs Have You Smoked in the Last Year: Yes Household Exposure Type: Cigarettes - Immunization History Most Recent Influenza Vaccination: Fall 2012 Most Recent Tetanus Shot: unknown Most Recent Pneumonia Vaccination: within last 10 years Review of Systems Constitutional: Fever ENT: Sore Throat Respiratory: Cough Cardiovascular: Negative Musculoskeletal: Arthralgia, Myalgia All Other Systems Reviewed And Are Negative: No Physical Exam - Summary Physical Exam Summary: She is nontoxic in appearance with stable vital signs. Triage Information Reviewed: Yes Appearance: Well-Appearing Vital Signs: Initial Vital Signs Temp 97.4 F 03/16/18 08:16 Pulse 69 03/16/18 08:16 Resp 18 03/16/18 08:16 BP 125/69 03/16/18 08:16 Pulse Ox 97 03/16/18 08:16 ENT: Positive: Normal ENT inspection Neck: Positive: Supple, Nontender, No Lymphadenopathy Respiratory: Positive: No respiratory distress, No accessory muscle use, Rhonchi - right base. Negative: Wheezing Cardiovascular: Positive: RRR UC Diagnostic Evaluation - Laboratory O2 Sat by Pulse Oximetry: 97 Respiratory Course/Dx - Course Course Of Treatment: Ms. Logan likely has a viral upper respiratory tract infection. She is a smoker and may be developing a secondary bacterial infection. Given that her is being treated for pneumonia at this time the prudent thing is to treat her with antibiotics. - Differential Dx/Diagnosis Provider Diagnoses: Bronchitis Discharge - Sign-Out/Discharge Documenting (check all that apply): Patient Departure All imaging exams completed and their final reports reviewed: Yes - Discharge Plan Condition: Stable Disposition: HOME Prescriptions: Levofloxacin TAB* [Levaquin TAB*] 750 mg PO DAILY #10 tab Patient Education Materials: Acute Bronchitis (ED) Referrals: Verona Childress MD [Primary Care Provider] - Additional Instructions: Please follow up with Dr. Childress if not improving in the next 3-5 days. - Billing Disposition and Condition Condition: STABLE Disposition: Home
== END 2018-03-16 09:03 | disposition home or self-care (01) ==
LOC: UCEAST 08:10
DX: J40 Bronchitis, not specified as acute or chronic (principal); J45.909 Unspecified asthma, uncomplicated; F17.210 Nicotine dependence, cigarettes, uncomplicated; Z88.0 Allergy status to penicillin
CPT/HCPCS: 99212; G0463

== ENCOUNTER 2024-04-20 04:19 | Inpatient (IN) ==
[2024-04-20 04:45] LABS: ABS Eosinophils 0.1 10^3/uL (0.0-0.5); ABS Lymphocytes 1.7 10^3/uL (1.0-4.8); ABS Monocytes 0.4 10^3/uL (0.0-0.9); ABS Neutrophils 2.9 10^3/uL (1.5-7.6); Eosinophil % 2.1 %; Hematocrit 40.6 % (35-45); Lymphocyte % 32.5 %; Mean Corpuscular Hemoglobin 31.9 pg (27-33); Mean Corpuscular Hgb Conc 34.5 g/dL (31-36); Mean Corpuscular Volume 92.5 fL (80-97); Mean Platelet Volume 8.2 fL (7.5-11.2); Platelet Count 199 10^3/uL (150-450); Red Blood Count 4.39 10^6/uL (3.63-4.92); White Blood Count 5.1 10^3/uL (3.8-11.8)
[2024-04-20 04:48] LABS: INR 0.96 (0.85-1.14)
[2024-04-20 05:10] LABS: Albumin 4.5 g/dL (3.2-5.2); Calcium 9.2 mg/dL (8.6-10.3); Creatinine, Serum 0.9 mg/dL (0.51-0.95); Globulin 2.3 g/dL (2-4); Total Bilirubin 0.4 mg/dL (0.2-1.0); Total Protein 6.8 g/dL (6.4-8.9); eGFR CKD-EPI 67.5 (>60)
[2024-04-20 06:22] LABS: High Sensitivity Troponin 1 Hr 202 pg/mL (<15)
[2024-04-20] MEDS: Iohexol 350 (CONTRAST) 500 ML MDV IV ONE (07:16)
[2024-04-20 09:26] LABS: HDL Cholesterol 49.4 mg/dL
[2024-04-20 09:51] LABS: High Sensitivity Troponin 3 Hr 630 pg/mL (<15)
[2024-04-20] MEDS ORDERED: Sulfur Hexaflouride MICROSPHR 25 MG VIAL IV PRN (10:11)
[2024-04-20] MEDS: Heparin DRIP 25,000 UNITS BAG 25,000 UNITS/250 ML BAG IV SCH (10:38)
[2024-04-20] MEDS: Heparin 5000 UNITS/ML 1 mL VIAL IV SCH (10:39)
[2024-04-21] MEDS: Ondansetron 4 mg VIAL 2 MG/ML 2 ml VIAL IV PRN (06:03)
[2024-04-21 06:45] LABS: Activated Partial Thrombo Time 38.7 seconds (26.0-38.0); INR 1.02 (0.85-1.14)
[2024-04-21 08:03] LABS: ABS Lymphocytes 0.3 10^3/uL (1.0-4.8); ABS Monocytes 0.1 10^3/uL (0.0-0.9); ABS Neutrophils 7.3 10^3/uL (1.5-7.6); Eosinophil % 0.5 %; Hematocrit 43.3 % (35-45); Hemoglobin 14.7 g/dL (11.5-14.3); Lymphocyte % 4.5 %; Mean Corpuscular Hemoglobin 31.9 pg (27-33); Mean Corpuscular Volume 93.8 fL (80-97); Mean Platelet Volume 8.4 fL (7.5-11.2); Platelet Count 160 10^3/uL (150-450); Red Blood Count 4.62 10^6/uL (3.63-4.92); Red Cell Distribution Width 14.1 % (12-17); White Blood Count 7.8 10^3/uL (3.8-11.8)
[2024-04-21 08:13] LABS: Calcium 8.9 mg/dL (8.6-10.3); Creatinine, Serum 0.89 mg/dL (0.51-0.95); Potassium 4.2 mmol/L (3.5-5.0); eGFR CKD-EPI 68.4 (>60)
[2024-04-21] MEDS: Aspirin EC 81 mg TAB.EC (enteric coated) PO SCH (08:38)
[2024-04-21] MEDS ORDERED: Heparin 1,000 UNIT/ML 10 ml (10,000 UNITS) CATHLAB/DIALYSIS ONE (09:33)
[2024-04-21] MEDS ORDERED: Lidocaine 1% MPF 5 ML VIAL ONE (09:34)
[2024-04-21] MEDS ORDERED: Heparin 2 UNITS/ML IVPREMIX 1,000 UNIT/500 ML BAG IV ONE (09:34)
[2024-04-21] MEDS ORDERED: Iohexol 350 (CONTRAST) 200 ML MDV IV ONE (09:34)
[2024-04-21] MEDS ORDERED: Heparin 2 UNITS/ML 1000 mls 2,000 ML IV ONE (09:34)
[2024-04-21] MEDS ORDERED: nitroGLYCERIN DRIP 25,000 MCG/250 ML BTL ONE (09:34)
[2024-04-21] MEDS ORDERED: niCARdipine 0.1MG/ML IVPREMIX 20 MG/200 ML BAG IV ONE (09:34)
[2024-04-21] MEDS ORDERED: Midazolam 5 mg/5 ml VIAL 1 mg/ml 5 ml VIAL (5 mg) ONE (09:42)
[2024-04-21] MEDS ORDERED: fentaNYL 100 mcg/2 ml 50 MCG/ML VIAL ONE (09:42)
[2024-04-22 05:59] LABS: ABS Eosinophils 0.2 10^3/uL (0.0-0.5); ABS Lymphocytes 0.4 10^3/uL (1.0-4.8); ABS Monocytes 0.4 10^3/uL (0.0-0.9); ABS Neutrophils 6.2 10^3/uL (1.5-7.6); Eosinophil % 2.6 %; Hematocrit 38.6 % (35-45); Hemoglobin 13.4 g/dL (11.5-14.3); Lymphocyte % 5.7 %; Mean Corpuscular Hemoglobin 32.2 pg (27-33); Mean Corpuscular Hgb Conc 34.7 g/dL (31-36); Mean Corpuscular Volume 92.9 fL (80-97); Mean Platelet Volume 8.6 fL (7.5-11.2); Nucleated Red Blood Cells % 0.1 %/100WBC (0.0-0.8); Platelet Count 161 10^3/uL (150-450); Red Blood Count 4.16 10^6/uL (3.63-4.92); Red Cell Distribution Width 13.9 % (12-17); White Blood Count 7.1 10^3/uL (3.8-11.8)
[2024-04-22 10:13] VITALS: BP 109/42
[2024-04-22] MEDS ORDERED: Enoxaparin 40 MG/0.4 ML SYR SUBCUT SCH (16:00)
== END 2024-04-22 11:16 | disposition home or self-care (01) | DRG 281 ==
LOC: ED 04:19 → EDHOLD 04:19 → OBSVTOIN 09:04 → SUATTDRO 09:04 → MEDTELE 11:01
PROVIDERS: ADMIT Hospitalist; ATTEND Student in an Organized Health Care Education/Training Program